=== PATIENT | male | born 1975 | race Caucasian/White ===

== ENCOUNTER → 2017-03-03 | Outpatient (CLI) | payer BC ==
--- NOTE | 2017-03-03 09:15 | DIAGNOSTIC IMAGING REPORT ---
ABDOMEN COMPLETE (US) CLINICAL HISTORY: Generalized abdominal pain. Abdominal distention, weight gain. COMPARISON STUDY: CT scan dated 04/12/2012 FINDINGS: The pancreas was nonvisualized. The liver appeared sonographically normal. The gallbladder appears sonographically normal. There was no ductal dilatation. The common bile duct measures 4 mm. The spleen measured 10.7 cm. The right kidney measured 12.2 cm. The left kidney measures 11.6 cm. There was mild renal cortical thinning. There is no hydronephrosis. There was no evidence of abdominal aortic dilatation. The study was limited from technical standpoint due to extensive bowel gas. IMPRESSION: 1. Nondiagnostic evaluation of the pancreas 2. Possible mild renal cortical thinning. 3. Otherwise normal study. Electronically signed by: Benjamin Toscano M.D. 03/03/2017 9:13 AM Dictated Date/Time: 03/03/2017 9:11 AM
== END | disposition home or self-care (01) ==
LOC: C.ULTR 08:31
PROVIDERS: ATTEND Physician Assistant
DX: R10.31 Right lower quadrant pain (principal); R63.5 Abnormal weight gain; R14.0 Abdominal distension (gaseous)